=== PATIENT | male | born 1985 | race Caucasian/White ===

== ENCOUNTER 2020-04-19 11:48 | Observation (INO) | payer SELFPAY ==
--- NOTE | 2020-04-19 12:33 | RAD ---
EXAM: CHEST ONE VIEW HISTORY: Chest pain. COMPARISON: 08/17/2014 FINDINGS: The cardiac silhouette and pulmonary vasculature is within normal limits. The lungs are clear. The os seous structures are intact. IMPRESSION: No acute cardiopulmonary process.
[2020-04-19 12:37] LABS: #Basophils 0.1 thou/uL (0.0-0.2); #Eosinphils 0.2 thou/uL (0.0-0.7); #Lymphocytes 2.3 thou/uL (1.20-3.40); #Monocytes 0.7 thou/uL (0.11-0.59); #Neutrophils 7.5 thou/uL (1.40-6.50); %Basophils 0.5 % (0.0-1.0); %Lymphocytes 21.4 % (21.0-51.0); %Monocytes 6.4 % (0.0-10.0); %Neutrophils 69.6 % (42.0-75.0); Hemoglobin 17.4 g/dL (14.0-18.0); Mean Corpuscular HGB CONC 33.6 g/dL (32.0-36.0); Mean Corpuscular Hemoglobin 31.3 pg (27.0-31.0); Mean Corpuscular Volume 93.1 fL (78.0-98.0); Mean Platelet Volume 8.4 fL (7.4-10.4); Platelet Count 220 thou/uL (130-400); RBC Distribution Width 11.6 % (11.5-14.5); Red Blood Cell (RBC) Count 5.56 mill/uL (4.70-6.10); White Blood Cell (WBC) Count 10.7 thou/uL (4.8-10.8)
[2020-04-19 13:01] LABS: ALT (SGPT) 44 U/L (8-55); AST (SGOT) 23 U/L (5-34); Albumin 4.2 g/dL (3.5-5.0); Alkaline Phosphatase 121 U/L (40-110); Anion Gap 11 mmol/L (10-20); BUN (Urea Nitrogen) 9 mg/dL (8.9-20.6); Bilirubin, Total 0.5 mg/dL (0.2-1.2); CK (CPK) 206 U/L (30-200); Calc. Creatinine Clearance 0 mL/min (70-130); Calcium 8.8 mg/dL (7.8-10.44); Carbon Dioxide 23 mmol/L (22-29); Chloride 105 mmol/L (98-107); Estimated GFR-MDRD Greater than 90; Globulin 2.7 g/dL (2.4-3.5); Glucose 91 mg/dL (70-105); Lipase 32 U/L (8-78); Potassium 4.2 mmol/L (3.5-5.1); Protein, Total 6.9 g/dL (6.0-8.3); Sodium 135 mmol/L (136-145)
[2020-04-19 13:12] LABS: Acetaminophen Less than 6.0 mcg/mL (10.0-30.0); Alcohol Less than 10 mg/dL (Less than 10); Salicylate Less than 8.0 mg/dL (15.0-30.0)
--- NOTE | 2020-04-19 14:04 | PDOC.FPRHP ---
- History of Present Illness Chief Complaint: Chest Pain History of Present Illness: Patient is a 34 y/o male who presents to the ED from the [facility] in [place], [place] with a chief complaint of chest pain. Patient states that he was watching Netflix on his bed this morning at 0800 when he felt a sudden onset of substernal chest pain. Patient rate the pain as an 8/10 and stated that it felt like "someone was sitting on my chest". He denied radiation or palliative factors, but did note that the pain was worse with inspiration and that he also felt dizzy. His was with him during the episode, and encouraged him to call EMS. 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 Patient states that he has been "clean" for 15Y. Code: Full - Review of Systems General: denies: fever/chills, fatigue Eyes: denies: vision changes ENT: denies: rhinorrhea Respiratory: reports: cough. denies: shortness of breath, exercise intolerance Cardiovascular: reports: chest pain. denies: palpitation, edema, paroxysmal nocturnal dyspnea Gastrointestinal: denies: nausea, vomiting, diarrhea, constipation, abdominal pain, GI bleeding Genitourinary: denies: dysuria, discharge Skin: denies: rashes Musculoskeletal: denies: swelling Neurological: denies: syncope, weakness - Vital signs BP: [124/96] HR: [85] RR: [12] Tmax: [] Pox: [99]% on [Room Air] Wt: [108 kg] - Physical Exam Constitutional: NAD, awake, alert and oriented, well developed HEENT: normocephalic and atraumatic, PERRLA, EOMI, conjunctiva clear, no scleral icterus, grossly normal vision, grossly normal hearing, normal nasal mucosa, MMM, oropharynx clear Neck: supple, FROM, trachea midline, no LAD, no JVD, no bruits Chest: no-tender to palpation, no lesions Heart: RRR, normal S1/S2, no murmurs/rubs/gallops, pulses present, no edema Lungs: CTAB, no respiratory distress, good air movement, no rales/rhonchi, no wheezing, no retractions Abdomen: soft, bowel sounds present, no masses/distention, no hernias -Abdomen: Herring(+) Musculoskeletal: normal structure, ROM grossly normal Neurological: no focal deficit Skin: no rash/lesions, no jaundice Heme/Lymphatic: no unusual bruising or bleeding, no purpura, no petechia, no LAD Psychiatric: normal mood and affect, good judgment and insight, intact recent and remote memory FMR H&P: Results - Labs Result Diagrams: 04/19/20 12:22 04/19/20 12:22 Lab results: WBC 10.7 thou/uL (4.8-10.8) 04/19/20 12:22 Hgb 17.4 g/dL (14.0-18.0) 04/19/20 12:22 Hct 51.7 % (42.0-52.0) 04/19/20 12:22 MCV 93.1 fL (78.0-98.0) 04/19/20 12:22 Plt Count 220 thou/uL (130-400) 04/19/20 12:22 Neutrophils % 69.6 % (42.0-75.0) 04/19/20 12:22 Sodium 135 mmol/L (136-145) L 04/19/20 12:22 Potassium 4.2 mmol/L (3.5-5.1) 04/19/20 12:22 Chloride 105 mmol/L (98-107) 04/19/20 12:22 Carbon Dioxide 23 mmol/L (22-29) 04/19/20 12:22 BUN 9 mg/dL (8.9-20.6) 04/19/20 12:22 Creatinine 0.82 mg/dL (0.7-1.3) 04/19/20 12:22 Glucose 91 mg/dL (70-105) 04/19/20 12:22 Calcium 8.8 mg/dL (7.8-10.44) 04/19/20 12:22 Total Bilirubin 0.5 mg/dL (0.2-1.2) 04/19/20 12:22 AST 23 U/L (5-34) 04/19/20 12:22 ALT 44 U/L (8-55) 04/19/20 12:22 Alkaline Phosphatase 121 U/L (40-110) H 04/19/20 12:22 Creatine Kinase 206 U/L (30-200) H 04/19/20 12:22 Serum Total Protein 6.9 g/dL (6.0-8.3) 04/19/20 12:22 Albumin 4.2 g/dL (3.5-5.0) 04/19/20 12:22 Lipase 32 U/L (8-78) 04/19/20 12:22 - EKG Interpretation EKG: Left [place] Deviation - Radiology Interpretation Chest x-ray Status: report reviewed by me Additional comment: ROSALINO FMR H&P: A/P - Problem List (1) Spina bifida Status: Acute Code(s): Q05.9 - SPINA BIFIDA, UNSPECIFIED (2) Chest pain Status: Acute Code(s): R07.9 - CHEST PAIN, UNSPECIFIED (3) Hypertriglyceridemia Status: Acute Code(s): E78.1 - PURE HYPERGLYCERIDEMIA (4) Tobacco use disorder Status: Acute Code(s): Z72.0 - TOBACCO USE - Plan Patient is a 34 y/o male who presents to the ED for evaluation of chest pain. 1. Typical Chest Pain -Patient admits to crushing, sub-sternal chest pain that is relieved with Nitro -Patient has significant FHx for NH - father at 45 -Patient states that he "had an NH) in 2013 - but this appears to be inaccurate based on chart review -Stress Test (2013): Reversible defect in inferior wall -Heart Cath (2014: EF(60%) w/o notable defects -TTE (2013): EF(55%) w/o notable defects -Stress Test (06/2019): EF(45%), "probably normal" -TTE( 06/2019): EF(50-55%) -CXR: NAF -EKG: Left [place] Deviation -Trops: Negative x1 - will continue to trend -Mg: Pending -Phos: Pending -TSH: Pending -Physical exam notable for RUQ TTP - will order RUQ US -s/p ASA and Nitro in ED - will administer GI Cocktail (w/ ) -Exercise Stress Test: Pending 2. HLD -Triglycerides elevated in 2019 - will reorder FLP for risk stratification 3. Tobacco Abuse -Patient admits to a 14 PY Hx of Tobacco abuse -Will certified credit counselor patient on the importance of Tobacco Abuse Cessation Code: Full PCP: CC Diet: HH, NPO at 0001 Activity: Ad anderson VTE PPx: None - Star Score: 1 Dispo: Patient is currently stable and admitted to the Telemetry Floor for observation and further evaluation. Will administer GI Cocktail (w/ ) and Nitro PRN and monitor for resolution of symptoms. Will await lab and imaging studies as per above and alter plan of care accordingly. Expected LOS < 24H. FMR H&P: Upper Level - Plan Date/Time: 04/19/20 1403 INeena DO, have evaluated this patient and agree with findings/plan as outlined by international project engineer resident. Pertinent changes/additions are listed here. Pt is a 34 yo M with PMH of tobacco use and hypercholesteremia presenting for chest pain located substernal, pressure-like, associated with dizziness and lightheadedness. Was given Nitro that improved CP. Has significant FHx of CAD , dad passed at age 45 from NH. VS: BP136/86, P83, R18, T98.6, O297%RA PE: Gen: NAD HEENT: Moist MM, no LAD Heart: RRR, no murmurs or extra sounds. Distal pulses 2+ Lungs: distant lung sounds, no wheezing. No increased work of breathing Abd: soft, ttp along RUQ, +murphys, BS+, no masses or hernias Ext: no cyanosis or edema Skin: no rashes Psych: AOx3 Pertinent Labs/Imaging: Alk phos 121, AST 23, ALT 44 Troponin: < 0.010 EKG: NSR, no ST changes A/P: Atypical CP: -HEART score 2, trop neg x1, will trend and consider treadmill stress -Nitro prn -per chart review, had neg cath 2013, had negative stress 06/2019 -ddx includes gallbladder pathology with +murphys, RUQ US ordered, LFT's wnl -will give GI cocktail -risk stratify with FLP, A1c. -UDS pending Hypercholesterolemia: -total cholesterol >200 on last admission -repeat FLP -not on any meds d/t cost Tobacco Abuse: -certified credit counselor cessation -Nicotine patch prn. Dispo: place in obs, LOS likely < 48h. DVT PPx: SCD GI PPx: none Addendum - Attending - Attending Attestation Date/Time: 04/20/20 2633 I personally evaluated the patient and discussed the management with the team on day of admission. I agree with the History, Examination, Assessment and Plan documented above with any addition or exceptions noted below. The patient with a history of chest pain but has had multiple negative workups, including a cath in 2013 and a recent r/o 9 months ago. We discussed possible etiologies. Will rule him out overnight but I find the risk of ACS to be markedly low.
[2020-04-19] MEDS ORDERED: Ketorolac Tromethamine 30 MG/ML VIAL ONE (14:41)
[2020-04-19] MEDS ORDERED: Nicotine 14 MG PATCH ONE (15:40)
[2020-04-19] MEDS ORDERED: Lidocaine 2% Viscous Solution 20 ML, Aluminum & Magnesium Hydroxide 30 ML, Donnatal Eli... SSW SCH (15:45)
[2020-04-19 16:18] LABS: Troponin I Less than 0.010 ng/mL (< 0.028)
[2020-04-19] MEDS ORDERED: Ondansetron ODT 4 MG TAB PO PRN (17:28)
[2020-04-19] MEDS ORDERED: Nitroglycerin 0.4 MG TAB (25 Tab Bottle) PO PRN (17:28)
[2020-04-19 17:46] LABS: Hemoglobin A1c 5.5 % (4.0-6.0)
[2020-04-19 18:00] LABS: Phosphorus 2.6 mg/dL (2.3-4.7)
[2020-04-19 18:19] VITALS: BMI 34.2
[2020-04-19 18:27] LABS: Amphetamine Not Detected (NotDetected); Barbiturates Screen Not Detected (NotDetected); Benzodiazepine Screen Not Detected (NotDetected); Cocaine Metabolite Screen Not Detected (NotDetected); Medtox Control Line Valid? VALID (VALID); Medtox Reader # READER 1; Methadone Not Detected (NotDetected); Methamphetamine Not Detected (NotDetected); Opiate Screen Not Detected (NotDetected); Oxycodone Screen Not Detected (NotDetected); Phencyclidine (PCP) Not Detected (NotDetected); THC/Cannabinoid Screen Not Detected (NotDetected); Tricyclic Screen Not Detected (NotDetected)
[2020-04-19] MEDS ORDERED: Nicotine 14 MG PATCH TD SCH (21:00)
[2020-04-19 21:57] LABS: Troponin I Less than 0.010 ng/mL (< 0.028)
[2020-04-19] MEDS: Acetaminophen 325 MG TAB PO PRN (23:13)
[2020-04-20 05:05] LABS: Cardiac Risk 6.8 (Less than 4.5)
--- NOTE | 2020-04-20 05:51 | PDOC.FM ---
- Subjective Subjective: Patient was resting comfortably in his hospital bed at the time of evaluation. He stated that he had no acute overnight events other than a continuation of his headache s/p Nitro. He continued to endorse chest pain with inspiration and RUQ pain, but denied any dizziness, visual disturbances, N/V/D/C. - Objective Vital Signs & Weight: Vital Signs (12 hours) Temp Pulse Resp BP BP Pulse Ox 04/20/20 03:50 97.8 F 73 18 110/72 96 04/19/20 19:30 98.0 F 75 16 116/79 97 04/19/20 18:08 98.2 F 81 16 125/86 98 Weight Weight 96.298 kg Result Diagrams: 04/19/20 12:22 04/19/20 12:22 Phys Exam - Physical Examination Constitutional: NAD HEENT: moist MMs, oral pharynx no lesions Neck: supple, full ROM Respiratory: no wheezing, no rales, no rhonchi, clear to auscultation bilateral Cardiovascular: RRR, no significant murmur, no rub Gastrointestinal: soft, no distention, positive bowel sounds Mild TTP in RUQ - improved from previous evaluation. Musculoskeletal: no edema, pulses present Neurological: non-focal, moves all 4 limbs Psychiatric: normal affect Skin: no rash Dx/Plan (1) Spina bifida Code(s): Q05.9 - SPINA BIFIDA, UNSPECIFIED Status: Acute (2) Chest pain Code(s): R07.9 - CHEST PAIN, UNSPECIFIED Status: Acute (3) Hypertriglyceridemia Code(s): E78.1 - PURE HYPERGLYCERIDEMIA Status: Acute (4) Tobacco use disorder Code(s): Z72.0 - TOBACCO USE Status: Acute - Plan Plan: Patient is a 34 y/o male who presents to the ED for evaluation of chest pain. 1. Atypical Chest Pain -Patient admits to crushing, sub-sternal chest pain that is relieved with Nitro -Patient has significant FHx for IN - father at 45 -Patient states that he "had an IN" in 2013 - but this appears to be inaccurate based on chart review -Stress Test (2013): Reversible defect in inferior wall -Heart Cath (2013): EF(60%) w/o notable defects -TTE (2013): EF(55%) w/o notable defects -Stress Test (06/2019): EF(45%), "probably normal" -TTE (06/2019): EF(50-55%) -CXR: NAF -EKG: Left [place] Deviation -Trops: Negative x1 - will continue to trend -M.0 -Phos: 2.6 -TSH: 1.25 -HgA1C: 5.5 -Physical exam notable for RUQ TTP -RUQ US: NAF -s/p ASA and Nitro in ED - will administer GI Cocktail (w/ ) -UDS: Negative -Will not order additional Stress Test based on 07/12 Stress Test that was WNL 2. HLD -Triglycerides elevated in 2019 -FLP: Tri(207) Chol(156) LDL(92) HDL(23) - ASCDV risk is difficult to assess due to age 3. Tobacco Abuse -Patient admits to a 14 PY Hx of Tobacco abuse -Will prenatal genetic counselor patient on the importance of Tobacco Abuse Cessation Code: Full PCP: CC Diet: HH Activity: Ad anderson VTE PPx: None - Star Score: 1 Dispo: Patient is currently stable and admitted to the Telemetry Floor for observation and further evaluation of Atypical Chest Pain - likely MSK in nature. Will plan for DC this AM based on normal lab values, normal EKG, normal RUQ, and no acute events since hospitalization. Expected LOS < 24H. Addendum - Attending - Attending Attestation Date/Time: 04/20/20 2253 I personally evaluated the patient and discussed the management with Dr. Herrera. I agree with the History, Examination, Assessment and Plan documented above with any addition or exceptions noted below. Patient has been ruled out for ACS with enzymes, recent normal stress test. Stable for dc.
--- NOTE | 2020-04-20 07:55 | ULT ---
RIGHT UPPER QUADRANT ULTRASOUND: DATE: 04/19/2020. COMPARISON: None. HISTORY: Right upper quadrant pain. TECHNIQUE: Multiplanar, springer scale, sonographic imaging of the right upper quadrant provided. FINDINGS: The pancreas is obscured by bowel gas. No focal liver lesion or biliary dilatation. No gallbladder wall thickening or pericholecystic fluid. No gallstones are seen. The escalator attendant reports a negativ e Herring's sign. Common bile duct measures 4 mm, within normal limits. The right kidney measures 10.4 cm in craniocaudal dimension and demonstrates no evidence for stone, h ydronephrosis, or mass. IMPRESSION: Unremarkable right upper quadrant ultrasound. POS: [facility]
[2020-04-20] MEDS: Acetaminophen 325 MG TAB PO PRN (08:24)
[2020-04-20 12:24] VITALS: BP 129/88; TEMP 98
--- NOTE | 2020-04-20 15:36 | EKG ---
Test Reason : CP Blood Pressure : / mmHG Vent. Rate : 094 BPM Atrial Rate : 094 BPM P-R Int : 160 ms QRS Dur : 098 ms QT Int : 346 ms P-R-T Axes : 052 -34 033 degrees QTc Int : 432 ms Normal sinus rhythm Left axis deviation Inferior infarct , age undetermined Abnormal ECG Confirmed by SABINE KUMAR ([id number]), non linear editor MACEY BEST ([id number]) on 04/20/2020 3:35:59 PM Referred By: JOSÉ Confirmed By:SABINE KUMAR
--- NOTE | 2020-04-20 23:12 | DIS ---
DATE OF ADMISSION: 04/19/2020 DATE OF DISCHARGE: 04/20/2020 RESIDENT: Christopher Herrera MD ADMITTING ATTENDING: Sukumar Frost MD DISCHARGE ATTENDING: Sami Benz MD CONSULTS: None. PROCEDURES PERFORMED: Chest x-ray, which revealed no acute cardiopulmonary processes. Abdominal ultrasound, which revealed unremarkable right upper quadrant. PRIMARY DIAGNOSIS: Atypical chest pain most likely musculoskeletal. SECONDARY DIAGNOSES: Hyperlipidemia and tobacco abuse. DISCHARGE MEDICATIONS: None. DISCONTINUED MEDICATIONS: None. HISTORY OF PRESENT ILLNESS/HOSPITAL COURSE: The patient is a 34-year-old male with a reported history of KS and a confirmed past medical history of tobacco abuse, who presents to the ED from the [facility] in [place], [place], with a chief complaint of chest pain. The patient states that he was watching Netflix on his bed at around 8:00 a.m. in the morning when he felt a sudden onset of crushing substernal chest pain. He rated the pain as 8/10 and noted that it felt like someone was "sitting on his chest." The patient denied radiation or palliative factors, but did note that the pain was worse with inspiration and that he also felt dizzy. The patient's was with him during the episode, encouraged him to call the EMS. He was subsequently given aspirin 324 mg p.o., nitroglycerin sublingual, and Toradol x1. In the emergency department, the patient received a chest x- ray and EKG, the results of which were largely unremarkable. In the ED, the patient stated that he had had a heart attack four years prior. However, subsequent review of records revealed that the patient has not had a myocardial infarction. Of note , the patient had an abnormal stress test performed in an outpatient setting and subsequently had a heart catheterization performed by Dr. Gilmer Decker that demonstrated an ejection fraction of approximately 60% and no significant stenosis. The patient was subsequently transferred to the telemetry floor for observation. On physical exam, the patient had demonstrated right upper quadrant tenderness to palpation and a subsequent right upper quadrant ultrasound was performed, which was read as negative. Overnight, the patient had no documented cardiopulmonary events and was monitored continuously by telemetry personnel. Due to the fact the patient had received a stress test that was essentially normal approximately nine months prior in June of 2019, the decision was made not to pursue an additional stress test. The patient was subsequently discharged. This plan of care was discussed with the patient and he was in agreement and eager to return back to the mission. Prior to discharge, the patient's vital signs were recorded as temperature 98 degrees, pulse 80 beats per minute, respirations 14 per minute, oxygen saturation 96% on room air, and blood pressure 129/88. LABORATORY ANALYSIS: Revealed a white blood cell count of 10.7, hemoglobin 17.4 , hematocrit 51.7, platelet count 220. Chem panel revealed a sodium of 135, potassium 4.2, chloride 105, carbon dioxide 23, BUN 9, creatinine 0.82, glucose 91. Hemoglobin A1c 5.5, calcium 8.8, phosphorus 2.6, magnesium 2.0, total bilirubin 0.5, AST 23, ALT 44, alkaline phosphatase 121, creatine kinase 206. Troponins negative x3. TSH 1.2597. Triglycerides 207. Cholesterol 156, LDL 92, HDL 23, lipase 32. DISPOSITION: Stable. DISCHARGE INSTRUCTIONS: 1. Location: Home. 2. Diet: Heart healthy. 3. Activity: No restrictions. 4. Followup: The patient was encouraged to establish care with a primary care physician as earliest convenience for ongoing medical management. Job ID: [id number] [facility]ITAL[facility]dee
== END 2020-04-20 13:05 | disposition home or self-care (01) ==
LOC: ERS 11:48 → 2NO 17:22 → ERS 18:03 → 2NO 18:03
PROVIDERS: ADMIT Student in an Organized Health Care Education/Training Program; ATTEND Student in an Organized Health Care Education/Training Program
DX: R07.89 Other chest pain (principal); Q05.9 Spina bifida, unspecified; E78.1 Pure hyperglyceridemia; F17.210 Nicotine dependence, cigarettes, uncomplicated; F10.11 Alcohol abuse, in remission; I25.10 Atherosclerotic heart disease of native coronary artery without angina pectoris; Z79.82 Long term (current) use of aspirin; Z91.040 Latex allergy status; Z91.048 Other nonmedicinal substance allergy status
CPT/HCPCS: 36415; 71045; 76705; 80053; 80061; 80306; 80307; 82550; 83036; 83690; 83735; 84100; 84443; 84484; 85025; 93005; 94760; 96374; G0378; J1885

== ENCOUNTER 2020-06-29 00:54 | Emergency (ER) | payer SELFPAY ==
[2020-06-29] MEDS ORDERED: Ketorolac Tromethamine 30 MG/ML VIAL ONE (01:17)
== END 2020-06-29 02:03 | disposition home or self-care (01) ==
LOC: ERS 00:54
DX: G62.9 Polyneuropathy, unspecified (principal); I10 Essential (primary) hypertension; I25.2 Old myocardial infarction; F41.9 Anxiety disorder, unspecified; F31.9 Bipolar disorder, unspecified; F20.9 Schizophrenia, unspecified; F17.210 Nicotine dependence, cigarettes, uncomplicated
CPT/HCPCS: 96372; 99283; J1885